=== PATIENT | male | born 1985 | race African-American/Black ===

== ENCOUNTER 2019-08-08 22:37 | Emergency (ER) | payer SELFPAY ==
[~2019-08-08] VITALS: Ht 170.2 cm; Wt 106.0 kg
[2019-08-09 01:24] VITALS: BP 128/65
[2019-08-09] MEDS ORDERED: LIDOCAINE/EPINEPHR/TETRACAINE 3ML TP ONE (01:30)
== END 2019-08-09 03:27 | disposition home or self-care (01) ==
LOC: ER 22:37
DX: L02.415 Cutaneous abscess of right lower limb (principal); F17.200 Nicotine dependence, unspecified, uncomplicated
CPT/HCPCS: 10060; 99283; Z7610

== ENCOUNTER 2019-12-19 00:58 | Emergency (ER) | payer SELFPAY ==
[~2019-12-19] VITALS: Ht 170.2 cm; Wt 104.0 kg
[2019-12-19 02:59] VITALS: BP 116/73
[2019-12-19] MEDS ORDERED: KETOROLAC 30MG/ML VIAL IM ONE (03:00)
== END 2019-12-19 03:23 | disposition home or self-care (01) ==
LOC: ER 00:58
DX: H61.22 Impacted cerumen, left ear (principal); H92.02 Otalgia, left ear
CPT/HCPCS: 96372; 99283; J1885

== ENCOUNTER 2020-10-22 09:05 | Emergency (ER) | payer MEDICAID ==
[~2020-10-22] VITALS: Ht 177.8 cm; Wt 118.0 kg
[2020-10-22] MEDS ORDERED: OLANZAPINE 10 MG/VIAL IM NR (09:30)
[2020-10-22] MEDS ORDERED: MIDAZOLAM HCL 2 MG/2 ML VIAL IM NR (10:15)
[2020-10-22] MEDS ORDERED: MIDAZOLAM HCL 2 MG/2 ML VIAL IM ONE (10:15)
[2020-10-22 11:33] LABS: BASOPHILS % 0.6 % (0.0-2.0); EOSINOPHILS % 0.2 % (0.0-5.0); HEMATOCRIT. 43.6 % (42.0-52.0); HEMOGLOBIN. 14.8 g/dL (14.0-18.0); MEAN CORPUSCULAR HEMOGLOBIN 28.5 pg (28.0-32.0); MEAN CORPUSCULAR VOLUME 83.6 fL (80.0-94.0); MEAN PLATELET VOLUME 7.9 fl (7.4-10.4); MONOCYTES % 4.3 % (2.0-8.0); NEUTROPHILS % 86.9 % (40.0-76.0); PLATELET 299 x1000/uL (130-400); RED BLOOD CELL COUNT 5.21 mill/uL (4.7-6.1)
[2020-10-22 11:39] LABS: CHLORIDE 104 mEq/L (98-107)
[2020-10-22 11:43] LABS: ETHANOL BLOOD < 10 mg/dL
[2020-10-22] MEDS: LACTATED RINGERS 1,000 ML IV SCH ×2 (11:55→13:50)
[2020-10-22 12:06] LABS: CREATINE KINASE 548 IU/L (39-308)
[2020-10-22 15:51] LABS: CLARITY URINE CLEAR (CLEAR); COLOR URINE DARK YELLOW (YELLOW); KETONES URINE 1+ (NEGATIVE); LEUKOCYTE ESTERASE URINE 1+ (NEGATIVE); NITRITE URINE NEGATIVE (NEGATIVE); OCCULT BLOOD URINE TRACE (NEGATIVE); PROTEIN URINE 1+ (NEGATIVE); SPECIFIC GRAVITY URINE 1.028 (1.005-1.030)
[2020-10-22 16:00] LABS: *AMPHETAMINES SCREEN URINE PRESUMTIVE POSITIVE (NEGATIVE); *BARBITURATES SCREEN URINE NEGATIVE (NEGATIVE); *BENZODIAZEPINES SCREEN URINE PRESUMTIVE POSITIVE (NEGATIVE); *COCAINE SCREEN URINE PRESUMTIVE POSITIVE (NEGATIVE); METHADONE URINE SCREEN NEGATIVE (NEGATIVE); OPIATES URINE SCREEN NEGATIVE (NEGATIVE)
[2020-10-22] MEDS ORDERED: MIDAZOLAM HCL 2 MG/2 ML VIAL IV PRN (16:00)
[2020-10-22] MEDS ORDERED: OLANZAPINE 10 MG/VIAL IM ONE (16:00)
[2020-10-22 16:01] LABS: CANNABINOID URINE SCREEN NEGATIVE (NEGATIVE); PHENCYCLIDINE URINE SCREEN NEGATIVE (NEGATIVE)
[2020-10-22] MEDS ORDERED: TETANUS, DIPHTHERIA, PERTUSSIS VAC/PF 0.5ML (>7YR OLD) IM ONE (16:45)
[2020-10-22 19:38] VITALS: BP 150/96
== END 2020-10-23 01:51 | disposition home or self-care (01) ==
LOC: ER 09:05
DX: S10.81XA Abrasion of other specified part of neck, initial encounter (principal); F23 Brief psychotic disorder; E87.6 Hypokalemia; F15.129 Other stimulant abuse with intoxication, unspecified; R79.89 Other specified abnormal findings of blood chemistry; Y08.89XA Assault by other specified means, initial encounter; Y07.04 Female partner, perpetrator of maltreatment and neglect; Y93.89 Activity, other specified; Y92.59 Other trade areas as the place of occurrence of the external cause
CPT/HCPCS: 36415; 71045; 80048; 80305; 80307; 80320; 80329; 81003; 82550; 85025; 90471; 90715; 93005; 96361; 96372; 99285; J2250; J3490; G0480